=== PATIENT | female | born 1970 | race Caucasian/White ===

== ENCOUNTER 2016-03-21 08:25 | Outpatient (CLI) ==
[2016-03-21 08:59] LABS: H. PYLORI ANTIBODY NEGATIVE (NEGATIVE)
[2016-03-21 09:00] LABS: H.PYLORI INTERNAL QC INTERNAL QC VALID
== END 2016-03-21 08:26 | disposition home or self-care (01) ==
LOC: LAB 08:25
PROVIDERS: ATTEND Nurse Practitioner Family
DX: E11.9 Type 2 diabetes mellitus without complications (principal); Z86.2 Personal history of diseases of the blood and blood-forming organs and certain disorders involving the immune mechanism
CPT/HCPCS: 36415; 80061; 86677

== ENCOUNTER 2016-05-10 11:24 | Outpatient (CLI) | END 2016-05-10 11:25 | disposition home or self-care (01) | LOC: LAB 11:24 | PROVIDERS: ATTEND Internal Medicine Endocrinology, Diabetes & Metabolism | DX: E03.9 Hypothyroidism, unspecified (principal) | CPT/HCPCS: 36415; 84439; 84443 ==

== ENCOUNTER 2016-07-19 11:38 | Outpatient (CLI) | END 2016-07-19 11:39 | disposition home or self-care (01) | LOC: LAB 11:38 | PROVIDERS: ATTEND Internal Medicine Endocrinology, Diabetes & Metabolism | DX: E03.9 Hypothyroidism, unspecified (principal) | CPT/HCPCS: 36415; 84439; 84443 ==

== ENCOUNTER 2016-09-25 11:01 | Outpatient (CLI) | END 2016-09-25 11:02 | disposition home or self-care (01) | LOC: LAB 11:01 | PROVIDERS: ATTEND Internal Medicine Endocrinology, Diabetes & Metabolism | DX: E03.9 Hypothyroidism, unspecified (principal) | CPT/HCPCS: 36415; 84439; 84443 ==

== ENCOUNTER 2016-12-13 08:54 | Emergency (ER) ==
[2016-12-13 09:17] VITALS: BP 133/87; TEMP 99.8; BMI 30.5
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
== END 2016-12-13 10:38 | disposition home or self-care (01) ==
LOC: ED 08:54
DX: S16.1XXA Strain of muscle, fascia and tendon at neck level, initial encounter (principal); G44.209 Tension-type headache, unspecified, not intractable; V89.2XXA Person injured in unspecified motor-vehicle accident, traffic, initial encounter
CPT/HCPCS: 99283

== ENCOUNTER 2017-01-15 09:14 | Outpatient (CLI) ==
[2017-01-15 10:59] LABS: ALBUMIN 3.2 g/dL (3.4-5.0); ALBUMIN/GLOBULIN RATIO 0.97; ANION GAP 12.7; BILIRUBIN,TOTAL 0.48 mg/dL (0.00-1.20); BUN/CREATININE RATIO 11.76; CALCIUM 8.9 mg/dL (8.2-10.2); CREATININE 0.85 mg/dL (0.60-1.30); POTASSIUM 3.7 mmol/L (3.5-5.10); TOTAL PROTEIN 6.5 g/dL (6.4-8.2)
== END 2017-01-15 09:15 | disposition home or self-care (01) ==
LOC: LAB 09:14
PROVIDERS: ATTEND Family Medicine
DX: R73.9 Hyperglycemia, unspecified (principal); R11.0 Nausea; E03.9 Hypothyroidism, unspecified
CPT/HCPCS: 36415; 80053; 83036; 84443; 84481

== ENCOUNTER 2017-02-04 10:51 | Outpatient (CLI) ==
--- NOTE | 2017-02-04 12:17 | DI ---
Exam: Five x-rays of the lumbar spine. Comparison: None available. Reason for exam: Low back pain. FINDINGS: No acute fracture or listhesis. Multilevel degenerative disease is seen with intervertebr al body disc space height loss and facet hypertrophy with osteophyte formation most notably at L4-L5 and L5-S1. The vertebral body heights are relatively well maintained. There is a normal appearing l umbar lordotic curve. Impression: 1. No acute fracture or listhesis in the lumbar spine. 2. Multilevel degenerative disease most notably at L4-5 and L5-S1 with intervertebral body disc spac e height loss, facet hypertrophy, and osteophyte formation. If clinical concern exists, MRI may be p erformed.
== END 2017-02-04 10:52 | disposition home or self-care (01) ==
LOC: RAD 10:51
PROVIDERS: ATTEND Family Medicine
DX: M54.5 Low back pain (principal)

== ENCOUNTER 2017-02-12 08:28 | Outpatient (RCR) ==
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
== END 2017-02-13 | disposition still patient (30) ==
PROVIDERS: ATTEND Family Medicine
DX: M54.5 Low back pain (principal)

== ENCOUNTER 2017-03-11 08:15 | Outpatient (RCR) ==
--- NOTE | 2017-02-14 09:33 | RS.OPPTDN ---
Subjective Date of Note: 02/14/17 Visit #: 2 Date of Evaluation: 02/12/17 Payer Source: Insurance Treatment Diagnosis: Low back pain Current Subjective/complaints:: Patient reports moderate back pain today.She reports she ahs to lift ~25 # - 35# of work related items. *Precautions: ALLERGY TO LATEX AND ADHESIVES Pain Assessment - Pain Description Pain Location: low back Pain Description: Dull, Aching Current Pain Intensity: 5 - Treatment Modality: Ultrasound Parameters/Method Applied: 10 mins. ,continuous mode @ 1.5 w/cm2 to lumbar area. Patient Position: Prone - Heat/Cryotherapy Treatment: Hot Pack (20 mins. prior to US and exercises) Interventions - Exercise/Activities/Manual Therapy Exercises/Activities: 20 mins. total of pelvic tilts , SKTC,DKTC,piriformis stretch,90/90 hamstring stretch,LTR. Total minutes of Exercise: 20 Manual Therapy: NA Total minutes of Manual Therapy: 0 HOME EXERCISE PROGRAM: HS stretch (advised to perform a few extra stretches on the left LE), lower trunk rotation, and piriformis stretch. - Charges Total Direct Minutes: 30 Total Treatment Time: 50 Procedures billed for this date of service:: hp,US,ex 1 Assessment: Patient has good return demo of HEP.She has full knee extension of the knees with hamstring stretches today.She has increased back pain lying supine ,gets relief with knees flexed ( hooklying position ). Patient Education: Education of diagnosis, Body/Joint mechanics, Home Exercise Program, Home Safety, Activity Modification, Education of Plan of Care Patient demonstrates compliance with HEP?: Yes Short Term Goals Goal #1: Pt compliant and independent with initial HEP. Goal to be met by: 02/26/17 Progress towards Goal:: Progressing Goal #2: Lumbar AROM 75% of normal range with minimal discomfort. Goal to be met by: 02/26/17 Goal #3: Muscle tone along the thoracic and lumbar spine decreased to minimal. Goal to be met by: 02/26/17 Goal #4: Pt to demo. understanding of proper back safety and lifting techniques. Goal to be met by: 02/26/17 Progress towards Goal:: Progressing Mcc Goals Goal #1: Pt knows HEP and to continue ex's to maintain level of function at D/C. Goal to be met by: 03/24/17 Goal #2: Score on Oswestry LBP scale improved to 16. Goal to be met by: 03/24/17 Goal #3: Pt able to perform daily work and home activities without back pain. Goal to be met by: 03/24/17 Goal #4: Pt able to sleep at night without interruption from back pain. Goal to be met by: 03/24/17 Plan PLAN OF CARE EXPIRES ON:: 03/24/17 ORDER # VISITS AND/OR THROUGH DATE: 03/24/17 PLAN: Continue PT to eliminate back pain,educate patient for safe lifting techniques.
--- NOTE | 2017-02-17 14:15 | RS.OPPTDN ---
Subjective Date of Note: 02/17/17 Visit #: 3 Date of Evaluation: 02/12/17 Payer Source: Insurance Treatment Diagnosis: Low back pain Current Subjective/complaints:: Reports her back is hurting more today due to a foot injury that changed the way she walks. *Precautions: ALLERGY TO LATEX AND ADHESIVES Pain Assessment - Pain Description Pain Description: Dull, Aching Current Pain Intensity: 6 - Treatment Modality: Ultrasound Parameters/Method Applied: 10 mins. , continuus mode 1.5 w/cm2 to lumbar and mid - thoracic region. Patient Position: Prone - Heat/Cryotherapy Treatment: Hot Pack (20 mins. prior to US and exercises) Interventions - Exercise/Activities/Manual Therapy Exercises/Activities: 20 mins. total of pelvic tilts , SKTC,DKTC,piriformis stretch,90/90 hamstring stretch,LTR.Instructed in abdominal crunches in short ROM. Total minutes of Exercise: 20 Manual Therapy: NA Total minutes of Manual Therapy: 0 HOME EXERCISE PROGRAM: HS stretch (advised to perform a few extra stretches on the left LE), lower trunk rotation, and piriformis stretch. - Charges Timed Code Treatment Minutes: 50 Total Treatment Time: 50 Procedures billed for this date of service:: hp,US,ex 1 Assessment: Patient attempted prone exercises ,but has immediate pain.She gets relief from flexion ,especially with SKTC.She has good hamstring extensibility present bilaterally.She repprst lesspain after treatment with initial standing today. Patient Education: Education of diagnosis, Body/Joint mechanics, Home Exercise Program, Home Safety, Activity Modification, Education of Plan of Care Patient demonstrates compliance with HEP?: Yes Short Term Goals Goal #1: Pt compliant and independent with initial HEP. Goal to be met by: 02/26/17 Progress towards Goal:: Progressing Goal #2: Lumbar AROM 75% of normal range with minimal discomfort. Goal to be met by: 02/26/17 Progress towards Goal:: Progressing Goal #3: Muscle tone along the thoracic and lumbar spine decreased to minimal. Goal to be met by: 02/26/17 Progress towards Goal:: Progressing Goal #4: Pt to demo. understanding of proper back safety and lifting techniques. Goal to be met by: 02/26/17 Progress towards Goal:: Progressing Pension Administrator Goals Goal #1: Pt knows HEP and to continue ex's to maintain level of function at D/C. Goal to be met by: 03/24/17 Goal #2: Score on Oswestry LBP scale improved to 16. Goal to be met by: 03/24/17 Goal #3: Pt able to perform daily work and home activities without back pain. Goal to be met by: 03/24/17 Goal #4: Pt able to sleep at night without interruption from back pain. Goal to be met by: 03/24/17 Plan PLAN OF CARE EXPIRES ON:: 03/24/17 ORDER # VISITS AND/OR THROUGH DATE: 03/24/17 PLAN: Continue skilled PT to eliminate back pain ,increase core strength ,and teach proper lifting mechanics.
--- NOTE | 2017-02-19 09:31 | RS.OPPTDN ---
Subjective Date of Note: 02/19/17 Visit #: 4 Date of Evaluation: 02/12/17 Payer Source: Insurance Treatment Diagnosis: Low back pain Current Subjective/complaints:: Reports she still requires the prescribed meds. for good sleep.Her pain level varies dependent upon her amount of work activity, and some days require more lifting than others. *Precautions: ALLERGY TO LATEX AND ADHESIVES Pain Assessment - Pain Description Pain Description: Dull, Aching Current Pain Intensity: - Treatment Modality: Ultrasound Parameters/Method Applied: 10 mins. @ 1.5 w/cm 2,continuous mode to lumbar and mid thoracic area. Patient Position: Prone - Heat/Cryotherapy Treatment: Hot Pack (20 mis. prior to US and exercises.) Interventions - Exercise/Activities/Manual Therapy Exercises/Activities: HEP review onlyof pelvic tilts , SKTC,DKTC,piriformis stretch,90/90 hamstring stretch,LTR,postural awareness. Total minutes of Exercise: 0 Manual Therapy: NA Total minutes of Manual Therapy: 0 HOME EXERCISE PROGRAM: HS stretch (advised to perform a few extra stretches on the left LE), lower trunk rotation, and piriformis stretch. - Charges Timed Code Treatment Minutes: 10 Total Treatment Time: 30 Procedures billed for this date of service:: hp,US Assessment: Patient has improved postural awareness.She continues to have varied pain levels ,dependent upon her work schedule.She sleeps with assist of medication at this time.She is very attentive and motivated to improve. Patient Education: Home Exercise Program Patient demonstrates compliance with HEP?: Yes Short Term Goals Goal #1: Pt compliant and independent with initial HEP. Goal to be met by: 02/26/17 Progress towards Goal:: Partially Met Goal #2: Lumbar AROM 75% of normal range with minimal discomfort. Goal to be met by: 02/26/17 Progress towards Goal:: Progressing Goal #3: Muscle tone along the thoracic and lumbar spine decreased to minimal. Goal to be met by: 02/26/17 Progress towards Goal:: Progressing Goal #4: Pt to demo. understanding of proper back safety and lifting techniques. Goal to be met by: 02/26/17 Progress towards Goal:: Progressing Social Media Content Manager Goals Goal #1: Pt knows HEP and to continue ex's to maintain level of function at D/C. Goal to be met by: 03/24/17 Progress towards goal: Progressing Goal #2: Score on Oswestry LBP scale improved to 16. Goal to be met by: 03/24/17 Goal #3: Pt able to perform daily work and home activities without back pain. Goal to be met by: 03/24/17 Goal #4: Pt able to sleep at night without interruption from back pain. Goal to be met by: 03/24/17 Plan PLAN OF CARE EXPIRES ON:: 03/24/17 ORDER # VISITS AND/OR THROUGH DATE: 03/24/17 PLAN: Continue skilled PT to decrease back pain and improve postural awareness.
--- NOTE | 2017-02-21 09:31 | RS.OPPTDN ---
Subjective Date of Note: 02/21/17 Visit #: 5 Date of Evaluation: 02/12/17 Payer Source: Insurance Treatment Diagnosis: Low back pain Current Subjective/complaints:: Reports the back is doing better. *Precautions: ALLERGY TO LATEX AND ADHESIVES Pain Assessment - Pain Description Pain Location: lumbar Pain Description: Dull, Aching Current Pain Intensity: 3 - Treatment Modality: Ultrasound Parameters/Method Applied: 10 mins. @ 1.5 w / cm 2 ,continuous mode. Patient Position: Prone - Heat/Cryotherapy Treatment: Hot Pack (20 mins. prior to US and ex) Interventions - Exercise/Activities/Manual Therapy Exercises/Activities: 10 mins. instruction with LATEX FREE THERABAND of postural pullbacks at three different angles.Recommended 3/10 ,2-3 x / day. Total minutes of Exercise: 10 Manual Therapy: NA Total minutes of Manual Therapy: 0 HOME EXERCISE PROGRAM: HS stretch (advised to perform a few extra stretches on the left LE), lower trunk rotation, and piriformis stretch.Added postural pullbacks at different angles with LATEX FREE THERABAND. - Charges Timed Code Treatment Minutes: 20 Total Treatment Time: 40 Procedures billed for this date of service:: hp,US,ex 1 Assessment: Patient progressing well,reports less intense back pain.She c/o neck pain with postural pull-ups exercise,instructed to not do this exercise, but tolerates all other exercises well. Patient Education: Education of diagnosis, Body/Joint mechanics, Home Exercise Program, Home Safety, Activity Modification, Education of Plan of Care Patient demonstrates compliance with HEP?: Yes Short Term Goals Goal #1: Pt compliant and independent with initial HEP. Goal to be met by: 02/26/17 Progress towards Goal:: Partially Met Goal #2: Lumbar AROM 75% of normal range with minimal discomfort. Goal to be met by: 02/26/17 Progress towards Goal:: Progressing Goal #3: Muscle tone along the thoracic and lumbar spine decreased to minimal. Goal to be met by: 02/26/17 Progress towards Goal:: Progressing Goal #4: Pt to demo. understanding of proper back safety and lifting techniques. Goal to be met by: 02/26/17 Progress towards Goal:: Progressing Chcf Goals Goal #1: Pt knows HEP and to continue ex's to maintain level of function at D/C. Goal to be met by: 03/24/17 Progress towards goal: Progressing Goal #2: Score on Oswestry LBP scale improved to 16. Goal to be met by: 03/24/17 Goal #3: Pt able to perform daily work and home activities without back pain. Goal to be met by: 03/24/17 Progress towards goal: Progressing Goal #4: Pt able to sleep at night without interruption from back pain. Goal to be met by: 03/24/17 Progress towards goal: Progressing Plan PLAN OF CARE EXPIRES ON:: 03/24/17 ORDER # VISITS AND/OR THROUGH DATE: 03/24/17 PLAN: Continue PT to eliminate back pain ,increase core strength and improve posture awareness.
--- NOTE | 2017-02-25 12:06 | RS.OPPTDN ---
Subjective Date of Note: 02/25/17 Visit #: 6 Date of Evaluation: 02/12/17 Payer Source: Insurance Treatment Diagnosis: Low back pain Current Subjective/complaints:: Patient reports muscle soreness in mid back from doing the theraband exercises ,but overall feels she is progressing. *Precautions: ALLERGY TO LATEX AND ADHESIVES Pain Assessment - Pain Description Pain Description: Dull, Aching Pain Description: " minimal " - Treatment Modality: Ultrasound Parameters/Method Applied: 10 mins. @ 1.5 w/cm2 , continuous mode to thoracic and lumbar region Patient Position: Prone - Heat/Cryotherapy Treatment: Hot Pack (20 mmins. prior to US and exercises) Interventions - Exercise/Activities/Manual Therapy Exercises/Activities: 15 mins. HEP review and return demo of [facility], hams. stretch ,piriformis stretch,scapular protraction . Total minutes of Exercise: 15 Manual Therapy: NA Total minutes of Manual Therapy: 0 HOME EXERCISE PROGRAM: HS stretch (advised to perform a few extra stretches on the left LE), lower trunk rotation, and piriformis stretch.Added postural pullbacks at different angles with LATEX FREE THERABAND. - Charges Timed Code Treatment Minutes: 25 Total Treatment Time: 45 Procedures billed for this date of service:: hp,US,ex Assessment: Patient has improved lumbar ROM with less pain,good hamstring extensibility bilaterally.She is compliant to HEP. Patient Education: Education of diagnosis, Body/Joint mechanics, Home Exercise Program, Home Safety, Activity Modification, Education of Plan of Care Patient demonstrates compliance with HEP?: Yes Short Term Goals Goal #1: Pt compliant and independent with initial HEP. Goal to be met by: 02/26/17 Progress towards Goal:: Partially Met Goal #2: Lumbar AROM 75% of normal range with minimal discomfort. Goal to be met by: 02/26/17 Progress towards Goal:: Progressing Goal #3: Muscle tone along the thoracic and lumbar spine decreased to minimal. Goal to be met by: 02/26/17 Progress towards Goal:: Progressing Goal #4: Pt to demo. understanding of proper back safety and lifting techniques. Goal to be met by: 02/26/17 Progress towards Goal:: Partially Met Software Tools Engineer Goals Goal #1: Pt knows HEP and to continue ex's to maintain level of function at D/C. Goal to be met by: 03/24/17 Progress towards goal: Progressing Goal #2: Score on Oswestry LBP scale improved to 16. Goal to be met by: 03/24/17 Goal #3: Pt able to perform daily work and home activities without back pain. Goal to be met by: 03/24/17 Progress towards goal: Progressing Goal #4: Pt able to sleep at night without interruption from back pain. Goal to be met by: 03/24/17 Progress towards goal: Progressing Plan PLAN OF CARE EXPIRES ON:: 03/24/17 ORDER # VISITS AND/OR THROUGH DATE: 03/24/17 PLAN: Continue PT to eliminate back pain ,improve core and LE strength.
--- NOTE | 2017-02-26 09:30 | RS.OPPTDN ---
Subjective Date of Note: 02/26/17 Visit #: 7 Date of Evaluation: 02/12/17 Payer Source: Insurance Treatment Diagnosis: Low back pain Current Subjective/complaints:: Patient reports the muscle soreness in the upper back is better today,feels this was probably beginning the theraband exercises. *Precautions: ALLERGY TO LATEX AND ADHESIVES Pain Assessment - Pain Description Pain Location: lumbar,occasionally upper T-spine Pain Description: Dull Current Pain Intensity: not rated - Treatment Modality: Ultrasound (10 mins.@ 1.5 w/cm2) Parameters/Method Applied: 10 mins. @ 1.5 w/ cm2,continuous mode to thoracolumbar area. - Heat/Cryotherapy Treatment: Hot Pack (20 mins. prior to US and exercises) Interventions - Exercise/Activities/Manual Therapy Exercises/Activities: 20 mins. HEP review and return demo of [facility],/90 hams. stretch ,alternating hip flexion with 4 # ,2/20.4 point quads with 4# ,2/5 each. Total minutes of Exercise: 20 Manual Therapy: NA Total minutes of Manual Therapy: 0 HOME EXERCISE PROGRAM: HS stretch (advised to perform a few extra stretches on the left LE), lower trunk rotation, and piriformis stretch.Added postural pullbacks at different angles with LATEX FREE THERABAND. - Charges Timed Code Treatment Minutes: 30 Total Treatment Time: 50 Procedures billed for this date of service:: hp,US,ex 1 Assessment: Patient proressing well.She reports less intensity and frequency of LBP with daily activities.She does not tolerate lumbar extension well,and understands the reasoning of core strengthening (abdominals ) to improve tolerance of lumbar extension. Patient Education: Education of diagnosis, Body/Joint mechanics, Home Exercise Program, Home Safety, Activity Modification, Education of Plan of Care Patient demonstrates compliance with HEP?: Yes Short Term Goals Goal #1: Pt compliant and independent with initial HEP. Goal to be met by: 02/26/17 Progress towards Goal:: Partially Met Goal #2: Lumbar AROM 75% of normal range with minimal discomfort. Goal to be met by: 02/26/17 Progress towards Goal:: Progressing Goal #3: Muscle tone along the thoracic and lumbar spine decreased to minimal. Goal to be met by: 02/26/17 Progress towards Goal:: Progressing Goal #4: Pt to demo. understanding of proper back safety and lifting techniques. Goal to be met by: 02/26/17 Progress towards Goal:: Partially Met Town Marshal Goals Goal #1: Pt knows HEP and to continue ex's to maintain level of function at D/C. Goal to be met by: 03/24/17 Progress towards goal: Progressing Goal #2: Score on Oswestry LBP scale improved to 16. Goal to be met by: 03/24/17 (N/A) Goal #3: Pt able to perform daily work and home activities without back pain. Goal to be met by: 03/24/17 Progress towards goal: Progressing Goal #4: Pt able to sleep at night without interruption from back pain. Goal to be met by: 03/24/17 Progress towards goal: Progressing Plan PLAN OF CARE EXPIRES ON:: 03/24/17 ORDER # VISITS AND/OR THROUGH DATE: 03/24/17 PLAN: Cont PT to eliminate back pain by utilizing core exercises.
--- NOTE | 2017-02-27 10:12 | RS.OPPTDN ---
Subjective Date of Note: 02/27/17 Visit #: 8 Date of Evaluation: 02/12/17 Payer Source: Insurance Treatment Diagnosis: Low back pain Current Subjective/complaints:: Patient reports pain is low today and describes as dull. She reports she had increased muscle soreness after starting upper trunk strengthening with theraband for scapular retraction. *Precautions: ALLERGY TO LATEX AND ADHESIVES Pain Assessment - Pain Description Pain Location: mid and low back Pain Description: Dull Current Pain Intensity: 2-3/10 - Treatment Modality: Ultrasound Parameters/Method Applied: [id number] at 1.5w/cm2 to the bilateral lumbar and lower thoracic paraspinals prior to EX. Patient in prone. Patient Position: Prone - Heat/Cryotherapy Treatment: Hot Pack ([id number] to the mid to lowback prior to US and EX. Patient in prone. ) Interventions - Exercise/Activities/Manual Therapy Exercises/Activities: 15mins. Discussion of HEP and benefits of trunk strengthening and postural correction. Assisted stretching of SKTC, hamstrings, and piriformis. Isometric hip flexion an isometric hip adduction. Progressed to green (latex-free) theraband for scapular retraction 2s/10reps. Began basic wall angels. Patient given copy of new exercise. Total minutes of Exercise: 15mins Manual Therapy: NA HOME EXERCISE PROGRAM: HS stretch (advised to perform a few extra stretches on the left LE), lower trunk rotation, and piriformis stretch.Added postural pullbacks at different angles with LATEX FREE THERABAND. Wall angels. - Charges Timed Code Treatment Minutes: 25mins Total Treatment Time: 45mins Procedures billed for this date of service:: HP, US, EX Assessment: Patient progressing with trunk and postural strengthening exercises. Patient Education: Body/Joint mechanics, Home Exercise Program Patient demonstrates compliance with HEP?: Yes Short Term Goals Goal #1: Pt compliant and independent with initial HEP. Goal to be met by: 02/26/17 Progress towards Goal:: Met Goal #2: Lumbar AROM 75% of normal range with minimal discomfort. Goal to be met by: 02/26/17 Progress towards Goal:: Progressing Goal #3: Muscle tone along the thoracic and lumbar spine decreased to minimal. Goal to be met by: 02/26/17 Progress towards Goal:: Progressing Goal #4: Pt to demo. understanding of proper back safety and lifting techniques. Goal to be met by: 02/26/17 Progress towards Goal:: Partially Met Stock Clipper Goals Goal #1: Pt knows HEP and to continue ex's to maintain level of function at D/C. Goal to be met by: 03/24/17 Progress towards goal: Progressing Goal #2: Score on Oswestry LBP scale improved to 16. Goal to be met by: 03/24/17 (N/A) Goal #3: Pt able to perform daily work and home activities without back pain. Goal to be met by: 03/24/17 Progress towards goal: Progressing Goal #4: Pt able to sleep at night without interruption from back pain. Goal to be met by: 03/24/17 Progress towards goal: Progressing Plan PLAN OF CARE EXPIRES ON:: 03/24/17 ORDER # VISITS AND/OR THROUGH DATE: 03/24/17 PLAN: Continue modalities and progress trunk and postural strengthening to reduce pain and increase functional activity level.
--- NOTE | 2017-03-03 09:34 | RS.OPPTDN ---
Subjective Date of Note: 03/03/17 Visit #: 9 Date of Evaluation: 02/12/17 Payer Source: Insurance Treatment Diagnosis: Low back pain Current Subjective/complaints:: Partient reports she returned using the green therabamd at home ,due to the red t-band causing some discomfort.She has no back pain this morning,pleased with her progress. *Precautions: ALLERGY TO LATEX AND ADHESIVES Pain Assessment - Pain Description Current Pain Intensity: 0 - Treatment Modality: Ultrasound Parameters/Method Applied: 10 mins. @ 1.5 w/cm2,continuous mode to lumbar , upper and mid T-spine. Patient Position: Prone - Heat/Cryotherapy Treatment: Hot Pack (20 mins. prior to US and exercises) Interventions - Exercise/Activities/Manual Therapy Exercises/Activities: 10 mins. HEP review and return demo of supine stretches / strengthening ,including SKTC,DKTC,hamstring stretches,resisted hip flexion , and SLR's . Total minutes of Exercise: 10 Manual Therapy: NA Total minutes of Manual Therapy: 0 HOME EXERCISE PROGRAM: HS stretch (advised to perform a few extra stretches on the left LE), lower trunk rotation, and piriformis stretch.Added postural pullbacks at different angles with LATEX FREE THERABAND. Wall angels. - Charges Timed Code Treatment Minutes: 20 Total Treatment Time: 40 Procedures billed for this date of service:: hp,US,ex 1 Assessment: Patient progressing well,continues to be compliant to HEP.She has no pain today,does SLR's without eliciting pain .We discussed the POC as her pain lessens we will initiate D/C plan. Patient Education: Education of diagnosis, Body/Joint mechanics, Home Exercise Program, Home Safety, Activity Modification, Education of Plan of Care Patient demonstrates compliance with HEP?: Yes Short Term Goals Goal #1: Pt compliant and independent with initial HEP. Goal to be met by: 02/26/17 Progress towards Goal:: Met Goal #2: Lumbar AROM 75% of normal range with minimal discomfort. Goal to be met by: 02/26/17 Progress towards Goal:: Partially Met Goal #3: Muscle tone along the thoracic and lumbar spine decreased to minimal. Goal to be met by: 02/26/17 Progress towards Goal:: Partially Met Goal #4: Pt to demo. understanding of proper back safety and lifting techniques. Goal to be met by: 02/26/17 Progress towards Goal:: Met Equipment Tech Goals Goal #1: Pt knows HEP and to continue ex's to maintain level of function at D/C. Goal to be met by: 03/24/17 Progress towards goal: Progressing Goal #2: Score on Oswestry LBP scale improved to 16. Goal to be met by: 03/24/17 (N/A) Goal #3: Pt able to perform daily work and home activities without back pain. Goal to be met by: 03/24/17 Progress towards goal: Progressing Goal #4: Pt able to sleep at night without interruption from back pain. Goal to be met by: 03/24/17 Progress towards goal: Partially Met Plan PLAN OF CARE EXPIRES ON:: 03/24/17 ORDER # VISITS AND/OR THROUGH DATE: 03/24/17 PLAN: Continue skilled PT to eliminate back pain ,improve core strength to decrease further injury.
--- NOTE | 2017-03-11 09:13 | RS.OPPTDC ---
Date of Discharge: 03/11/17 Date of Evaluation: 02/12/17 Number of Visits: 10 Treatment Diagnosis: Low back pain Current Level of Function: Independent in community,working [employer]. Current Complaints/Gains: No report of pain today or the last few days.She is comfortable remembering the HEP,agrees with D/C plan today. Pain Assessment - Pain Description Current Pain Intensity: 0 Functional Outcome Measure - G Codes & Severity Modifier G Codes & Modifier: NA Source of G Code score: NA Observation - Observation Posture: Normal Gait - Gait Pattern General Gait Pattern Observation: No Deviations/Normal General Range of Motion: WNL Muscle Strength: 5/5 - Heat/Cryotherapy Treatment: Hot Pack (20 mins. prior to exercises.) Interventions - Exercise/Activities/Manual Therapy Exercises/Activities: 20 mins. HEP review of pelvic tilts,SKTC,DKTC,90/90 hamstring stretches,piriformis stretches,LTR,postural pulbacks. Total minutes of Exercise: 20 Manual Therapy: NA Total minutes of Manual Therapy: 0 HOME EXERCISE PROGRAM: HS stretch (advised to perform a few extra stretches on the left LE), lower trunk rotation, and piriformis stretch.Added postural pullbacks at different angles with LATEX FREE THERABAND. Wall angels. - Charges Timed Code Treatment Minutes: 20 Total Treatment Time: 40 Procedures billed for this date of service:: hp,ex 1 Assessment Assessment: Met all rehab goals ,hs no pain today,good recall and return demo of HEP.She is aware of D/C plan today. Patient Education: Education of Plan of Care (D/C today) Rehab Potential: Good Short Term Goals Goal #1: Pt compliant and independent with initial HEP. Goal to be met by: 02/26/17 Progress towards Goal:: Met Goal #2: Lumbar AROM 75% of normal range with minimal discomfort. Goal to be met by: 02/26/17 Progress towards Goal:: Met Goal #3: Muscle tone along the thoracic and lumbar spine decreased to minimal. Goal to be met by: 02/26/17 Progress towards Goal:: Met Goal #4: Pt to demo. understanding of proper back safety and lifting techniques. Goal to be met by: 02/26/17 Progress towards Goal:: Met Mcfp Goals Goal #1: Pt knows HEP and to continue ex's to maintain level of function at D/C. Goal to be met by: 03/24/17 Progress towards goal: Met Goal #2: Score on Oswestry LBP scale improved to 16. Goal to be met by: 03/24/17 (0) Progress towards goal: Met Comments: no deficit Goal #3: Pt able to perform daily work and home activities without back pain. Goal to be met by: 03/24/17 Progress towards goal: Met Goal #4: Pt able to sleep at night without interruption from back pain. Goal to be met by: 03/24/17 Progress towards goal: Met Plan Reason for Discharge:: All Goals Met
== END 2017-03-16 ==
PROVIDERS: ATTEND Family Medicine
DX: M54.5 Low back pain (principal)

== ENCOUNTER 2017-03-25 13:56 | Outpatient (CLI) | END 2017-03-25 13:57 | disposition home or self-care (01) | LOC: LAB 13:56 | PROVIDERS: ATTEND Internal Medicine Endocrinology, Diabetes & Metabolism | DX: E78.5 Hyperlipidemia, unspecified (principal); E11.9 Type 2 diabetes mellitus without complications; E03.9 Hypothyroidism, unspecified; R53.83 Other fatigue; E55.9 Vitamin D deficiency, unspecified | CPT/HCPCS: 36415; 80053; 80061; 82043; 82306; 82607; 83036; 84439; 84443; 84481; 85025 ==